=== PATIENT | male | born 1990 | race Caucasian/White ===

== ENCOUNTER 2023-08-18 18:35 | Emergency (ER) | payer MEDICAID, OTHER ==
[~2023-08-18] VITALS: Ht 182.9 cm; Wt 158.8 kg
[2023-08-18] MEDS ORDERED: LISI20TA30 PO (18:57)
[2023-08-18] MEDS ORDERED: FAMO10TA41 PO (18:57)
[2023-08-18] MEDS ORDERED: CARV6.252 PO (18:57)
[2023-08-18] MEDS ORDERED: ROSU10TA2 PO (18:57)
[2023-08-18 21:54] VITALS: BP 120/61; O2SAT 96
== END 2023-08-18 21:30 | disposition home or self-care (01) ==
LOC: ER 18:37
DX: R10.31 Right lower quadrant pain (principal); E78.00 Pure hypercholesterolemia, unspecified; Z79.899 Other long term (current) drug therapy; Z88.0 Allergy status to penicillin
CPT/HCPCS: 76700; A4606; A4663